=== PATIENT | male | born 1990 ===

== ENCOUNTER 2022-03-21 05:30 | Day surgery (SDC) | payer OTHER ==
[~2022-03-21] VITALS: Ht 165.1 cm; Wt 60.8 kg
== END 2022-03-21 14:05 | disposition home or self-care (01) ==
LOC: CIR.AMB 05:30
PROVIDERS: ATTEND Urology
DX: N47.6 Balanoposthitis (principal); Z20.822 Contact with and (suspected) exposure to COVID-19